=== PATIENT | male | born 1970 | race Caucasian/White ===

== ENCOUNTER 2021-11-25 17:36 | Emergency (ER) | payer OTHER ==
[~2021-11-25] VITALS: Ht 175.3 cm; Wt 82.6 kg
[2021-11-25] MEDS ORDERED: AMOX1TAB5 PO (21:00)
== END 2021-11-25 21:18 | disposition home or self-care (01) ==
LOC: ER 17:36
DX: T70.0XXA Otitic barotrauma, initial encounter (principal); W16.611A Jumping or diving into natural body of water striking water surface causing drowning and submersion, initial encounter; H66.93 Otitis media, unspecified, bilateral